=== PATIENT | male | born 1990 | race Caucasian/White ===

== ENCOUNTER 2018-11-30 15:54 | Emergency (ER) | payer SELFPAY ==
[2018-11-30] MEDS ORDERED: Ondansetron 4 MG/2 ML SDV IVPUSH ONE (16:34)
[2018-11-30] MEDS ORDERED: Sodium Chloride 0.9% 1,000 ML IV ONE (16:34)
--- NOTE | 2018-11-30 16:40 | EDM.PDOC ---
ED HPI GENERAL MEDICAL PROBLEM - General Chief Complaint: General Stated Complaint: THROWING UP,NASEUA,WEAK,SOB Time Seen by Provider: 11/30/18 16:19 Source of Information: Reports: Patient, Inventory Checker (through telemed) History Limitations: Reports: No Limitations - History of Present Illness INITIAL COMMENTS - FREE TEXT/NARRATIVE: Patient presents with nausea, vomiting and weakness. This started 6 hours ago ( 1000) and he has vomited 5 times now. He ate last at 0600 this morning and felt fine then. - Related Data Allergies Allergy/AdvReac Type Severity Reaction Status Date / Time No Known Drug Allergies Allergy Cannot Verified 11/30/18 16:13 Remember Home Meds: Home Meds Sulfamethoxazole/Trimethoprim [Bactrim Ds Tablet] 1 tab PO BID 11/30/18 [History ] Past Medical History Gastrointestinal History: Reports: None - Past Surgical History Head Surgeries/Procedures: Reports: None GI Surgical History: Reports: Appendectomy Social & Family History - Tobacco Use Smoking Status *Q: Former Smoker Used Tobacco, but Quit: Yes Month/Year Tobacco Last Used: 2017 - Caffeine Use Caffeine Use: Reports: Coffee, Energy Drinks, Soda - Recreational Drug Use Recreational Drug Use: No ED ROS GENERAL - Review of Systems Review Of Systems: See Below Constitutional: Reports: Weakness. Denies: Fever, Chills HEENT: Denies: Ear Pain, Throat Pain, Vision Change Respiratory: Reports: Shortness of Breath (briefly with vomiting) Cardiovascular: Denies: Syncope GI/Abdominal: Reports: Nausea, Vomiting. Denies: Abdominal Pain, Black Stool, Bloody Stool, Diarrhea, Hematemesis, Hematochezia, Melena : Reports: No Symptoms Musculoskeletal: Reports: No Symptoms Skin: Reports: No Symptoms Neurological: Denies: Confusion, Seizure, Syncope, Trouble Speaking, Difficulty Walking Psychiatric: Denies: Agitation, Anxiety, Confusion ED EXAM, GENERAL - Physical Exam Exam: See Below Exam Limited By: No Limitations General Appearance: Alert, WD/WN, No Apparent Distress Eye Exam: Bilateral Eye: EOMI, Normal Inspection, PERRL Ears: Normal External Exam, Hearing Grossly Normal Nose: Normal Inspection, No Blood Throat/Mouth: Normal Inspection, Normal Lips, Normal Oropharynx, Normal Voice, No Airway Compromise Head: Atraumatic, Normocephalic Neck: Normal Inspection, Supple, Non-Tender, Full Range of Motion Respiratory/Chest: No Respiratory Distress, Lungs Clear, Normal Breath Sounds, No Accessory Muscle Use Cardiovascular: Regular Rate, Rhythm, No Murmur GI/Abdominal: Normal Bowel Sounds, Soft, Non-Tender, No Organomegaly, No Distention, No Abnormal Bruit Rectal (Males) Exam: Perirectal Abscess (small right inferior; non-tender to palpation. Patient says it has popped and drained pus several days ago.) Back Exam: Normal Inspection, Full Range of Motion. No: CVA Tenderness (L), CVA Tenderness (R) Extremities: Normal Inspection, Normal Range of Motion Neurological: Alert, Oriented, Normal Cognition, No Motor/Sensory Deficits Psychiatric: Normal Affect, Normal Mood Skin Exam: Warm, Dry, Intact, Normal Color, No Rash Course - Vital Signs Last Recorded V/S: Last Vital Signs Temp 97.4 F 11/30/18 15:58 Pulse 82 11/30/18 15:58 Resp 16 11/30/18 15:58 BP 159/70 H 11/30/18 15:58 Pulse Ox 97 11/30/18 15:58 - Orders/Labs/Meds Labs: Laboratory Tests 11/30/18 11/30/18 Range/Units 16:40 16:40 WBC 16.13 H (5.00-10.00) 10^3/uL RBC 5.48 (4.50-6.00) 10^6/uL Hgb 16.2 (13.0-17.0) g/dL Hct 45.4 (40.0-52.0) % MCV 82.8 (82.0-92.0) fL MCH 29.6 (27.0-31.0) pg MCHC 35.7 (32.0-36.0) g/dL RDW 12.7 (11.5-14.5) % Plt Count 357 (150-400) 10^3/uL MPV 9.5 (7.4-10.4) fL Immature Gran % (Auto) 0.2 (0.0-5.0) % Neut % (Auto) 85.8 H (50.0-70.0) % Lymph % (Auto) 10.6 L (20.0-40.0) % Boyd % (Auto) 3.1 (2.0-8.0) % Eos % (Auto) 0.1 L (1.0-3.0) % Baso % (Auto) 0.2 (0.0-1.0) % Immature Gran # (Auto) 0.04 (0.00-0.50) 10^3/uL Neut # (Auto) 13.83 H (2.50-7.00) 10^3/uL Lymph # (Auto) 1.71 (1.00-4.00) 10^3/uL Boyd # (Auto) 0.50 (0.10-0.80) 10^3/uL Eos # (Auto) 0.02 L (0.10-0.30) 10^3/uL Baso # (Auto) 0.03 (0.00-0.10) 10^3/uL Sodium 139 (136-145) mmol/L Potassium 3.9 (3.3-5.3) mmol/L Chloride 102 (98-115) mmol/L Carbon Dioxide 25.2 (21.0-32.0) mmol/L Anion Gap 15.7 H (5-15) mmol/L BUN 12 (6-25) mg/dL Creatinine 0.89 (0.51-1.17) mg/dL Est Cr Clr Drug Dosing 109.41 mL/min Estimated GFR (MDRD) > 60 mL/min Glucose 106 H (75 - 99) mg/dL Calcium 9.1 (8.7-10.3) mg/dL Total Bilirubin 0.2 (0.2-1.0) mg/dL AST 28 (15-37) U/L ALT 51 (12-78) U/L Alkaline Phosphatase 122 H (46-116) IU/L Total Protein 8.3 H (6.4-8.2) g/dL Albumin 4.08 (3.00-4.80) g/dL Meds: Medications Discontinued Medications Generic Name Dose Route Start Last Admin Trade Name Freq PRN Reason Stop Dose Admin Sodium Chloride 1,000 mls @ 999 mls/hr 11/30/18 16:34 11/30/18 16:43 Normal Saline IV 11/30/18 17:34 999 mls/hr .BOLUS ONE Administration Ondansetron HCl 4 mg 11/30/18 16:34 11/30/18 16:43 Zofran IVPUSH 11/30/18 16:35 4 mg ONETIME ONE Administration Ondansetron HCl 12 mg 11/30/18 17:42 Zofran Odt PO 11/30/18 17:43 ONETIME ONE - Re-Assessments/Exams Free Text/Narrative Re-Assessment/Exam: 11/30/18 17:16 WBC is 16. 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 He is seeing Kamille for this and was scheduled to see her today for recheck but felt better so didn't go, he says. He had stopped by the clinic today with the vomiting though and was sent to ER. He tells me that the fistula was so painful that he could hardly walk before starting the antibiotics, much better now. The nausea is much better now too after zofran and IV saline running. WBC was 11 a week ago. The elevation may be at least partially due to profuse vomiting today and since the rectal abscess seems to be improving significantly I feel it is appropriate to continue the current treatment and follow up with PCP. 11/30/18 17:46 Fluids are in and patient is feeling much better. Discussed findings and treatment plan. We also discussed that this may or may not be contagious to his 3-month-old baby, depending on if it is the "stomach flu" or a side effect of the antibiotic. I advised careful hygiene with thorough handwashing with soap after contact with saliva or feces and prior to any contact with his baby. Discharged to home in stable condition. Departure - Departure Time of Disposition: 17:43 Disposition: Home, Self-Care 01 Condition: Good Clinical Impression: Kendra-rectal abscess Nausea & vomiting Qualifiers: Vomiting type: unspecified Vomiting Intractability: unspecified Qualified Code( s): R11.2 - Nausea with vomiting, unspecified - Discharge Information Instructions: Nausea and Vomiting, Adult, [id number], Perirectal Abscess Referrals: Kamille Bernal PA-C [Primary Care Provider] - Forms: ED Department Discharge Additional Instructions: 1. Drink 8 cups of water daily. 2. Take the Zofran for nausea as directed. 3. Follow up with your PCP in a week for recheck of rectal abscess and fistula. 4. Continue your antibiotics as directed.
[2018-11-30 17:06] LABS: ANION GAP 15.7 mmol/L (5-15); CHLORIDE,CL 102 mmol/L (98-115); SODIUM,NA 139 mmol/L (136-145)
[2018-11-30] MEDS ORDERED: Ondansetron 4 MG Tab.DIS PO ONE (17:42)
== END 2018-11-30 18:05 | disposition home or self-care (01) ==
LOC: KA.ED 15:54
DX: K61.1 Rectal abscess (principal); R11.2 Nausea with vomiting, unspecified; Z90.49 Acquired absence of other specified parts of digestive tract; Z87.891 Personal history of nicotine dependence
CPT/HCPCS: 80053; 85025; 96361; 96374; 99284; J2405; J7030; 99283